=== PATIENT | female | born 1950 | race Caucasian/White ===

== ENCOUNTER 2022-03-07 12:14 | Emergency (ER) | payer BC, MEDICARE | END 2022-03-07 13:29 | disposition home or self-care (01) | LOC: JP.ED 12:14 | DX: S00.461A Insect bite (nonvenomous) of right ear, initial encounter (principal); Z88.1 Allergy status to other antibiotic agents; W57.XXXA Bitten or stung by nonvenomous insect and other nonvenomous arthropods, initial encounter | CPT/HCPCS: 99281 ==